=== PATIENT | female | born 1965 | race Caucasian/White ===

== ENCOUNTER 2019-06-25 17:14 | Emergency (ER) | payer OTHER ==
[~2019-06-25] VITALS: Ht 172.7 cm; Wt 54.0 kg
--- OUTSIDE RECORDS SUMMARY | 2019-06-25 17:16 | XMS REPORT ---
[facility] Address Unknown Phone Unavailable Care Team Providers Care Ems Driver Name Role Phone Unavailable Unavailable Payers Payer Name Policy Type Policy Number Effective Date Expiration Date Problems This patient has no known problems. Allergies, Adverse Reactions, Alerts Allergy Name Allergy Type Status Severity Reaction(s) Onset Date Inactive Date Treating Clinician Comments tramadol DA Active [place] 2016-04-10 00:00:00 iodine DA Active SV 2013-10-26 00:00:00 Medications This patient has no known medications.
== END 2019-06-25 19:16 | disposition home or self-care (01) ==
LOC: ER 17:14
DX: H92.01 Otalgia, right ear (principal); H61.21 Impacted cerumen, right ear
CPT/HCPCS: 99282